=== PATIENT | female | born 1935 | race Caucasian/White ===

== ENCOUNTER → 2016-07-22 | Outpatient (CLI) | payer MEDICARE ==
--- NOTE | 2016-07-22 14:38 | REPMRS ---
Patient History The patient states she had a clinical breast exam in Patient is postmenopausal. No known family history of cancer. Taking estrogen for 22 years. Digital Woman Screen Mammo: July 22, 2016 - Exam #: [id number] Bilateral CC and MLO view(s) were taken. Technologist: Farzana Souza, Technologist Prior study comparison: May 08, 2015, digital woman screen mammo performed at [facility]. March 13, 2014, digital woman screen mammo performed at [facility]. March 23, 2013, digital woman screen mammo performed at [facility]. FINDINGS: There are scattered fibroglandular densities. There has been no change in the appearance of the mammogram from the prior studies. There is a mild amount of scattered fibroglandular density which is fairly symmetric. There is no interval development of dominant mass, architectural distortion, or clustered microcalcification suggestive of malignancy. ASSESSMENT: BI-RADS/ACR category 1 mammogram. Negative. Recommendation Routine screening mammogram in 1 year (for women over age 40). This mammogram was interpreted with the aid of an FDA-approved computer-aided dectection system. Electronically Signed By: Jelani Marion MD 07/22/16 [id number]
== END ==
LOC: M WHC 12:55
PROVIDERS: ATTEND Family Medicine
DX: Z12.31 Encounter for screening mammogram for malignant neoplasm of breast (principal)

== ENCOUNTER → 2018-06-15 | Outpatient (CLI) | payer MEDICARE ==
--- NOTE | 2018-06-15 17:14 | REPMRS ---
Patient History The patient states she had a clinical breast exam in 07/2017. Patient is postmenopausal. No known family history of cancer. Taking estrogen for 23 years 11 months. Digital Woman Screen Mammo: June 15, 2018 - Exam #: [id number] Bilateral CC and MLO view(s) were taken. Technologist: Liana Joe Technologist Prior study comparison: July 22, 2016, digital woman screen mammo performed at [facility]. May 08, 2015, digital woman screen mammo performed at [facility]. March 13, 2014, digital woman screen mammo performed at [facility]. FINDINGS: There are scattered fibroglandular densities. There has been no change in the appearance of the mammogram from the prior studies. There is a mild amount of scattered fibroglandular density which is fairly symmetric. There is no interval development of dominant mass, architectural distortion, or clustered microcalcification suggestive of malignancy. 3-D tomosynthesis shows no additional findings. Assessment: BI-RADS/ACR category 1 mammogram. Negative Mammogram. Recommendation Routine screening mammogram of both breasts in 1 year (for women over age 40). This patient's Lifetime Breast Cancer RIsk is estimated at 0.3 %. This mammogram was interpreted with the aid of an FDA-approved computer-aided dectection system. Electronically Signed By: Jelani Marion MD 06/15/18 [id number]
== END ==
LOC: M WHC 14:10
PROVIDERS: ATTEND Family Medicine
DX: Z12.31 Encounter for screening mammogram for malignant neoplasm of breast (principal); Z78.0 Asymptomatic menopausal state; Z92.23 Personal history of estrogen therapy

== ENCOUNTER → 2019-06-22 | Outpatient (CLI) | payer MEDICARE ==
--- NOTE | 2019-06-22 15:09 | REP ---
BILATERAL SCREENING DIGITAL MAMMOGRAM WITH 3D TOMOSYNTHESIS: There are no palpable abnormalities or other breast complaints. The the patient states she has not had a clinical breast examination over a year. Comparison is 03/13/2014. There are scattered areas of fibroglandular density. There is no dominant mass, micro calcific cluster or architectural distortion that would indicate malignancy. There are no additional findings on 3D tomosynthesiss. There is no change from the prior study. Impression: BIRADS/ACR category 1 mammogram. Negative. Recommendation: Routine annual screening mammography. This mammogram was interpreted with the aid of a FDA approved computer-aided detection system. A. Negative mammogram reports should not delay biopsy if a dominant or clinically suspicious mass is present. B. Not all breast cancers are identified by mammography or tomosynthesis. C. Adenosis and dense breasts may obscure an underlying neoplasm. Patient letter M1. Electronically Signed by Delio Diaz MD 06/22/2019 03:01 P
--- NOTE | 2019-06-29 10:21 | DEXA ---
AP SPINE L1 - L4 1.316 1.0 2.9 LT FEMUR TOTAL 1.121 0.9 3.2 LT NECK 1.139 0.7 3.1 RT FEMUR TOTAL 1.151 1.1 3.4 RT NECK 1.134 0.7 3.1 TOTAL BODY TOTAL OTHER COMMENTS: Normal bone densitometry of the spine and hips. The increased density of the spine does represent a significant change. The increased density of the left hip does not represent a significant change. The decreased density of the right hip does represent a significant change. The density of the spine has increased 8.8% since the initial exam on 08/28/1999. The spine density has increased 6.1% since the most recent exam on 03/19/2012. The density of the left hip has increased 4.6% since the initial exam on 08/28/1999. The density of the left hip has increased 1.6% since the most recent exam on 03/19/2012. The density of the right hip has increased 7.3% since initial exam on 08/28/1999. The density of the right hip has decreased 2.0% since the most recent exam on 03/19/2012. FOLLOW-UP: Recommendation for the next bone density exam: 5 years. SHAHRZAD
== END ==
LOC: M WHC 13:14
PROVIDERS: ATTEND Family Medicine
DX: Z12.31 Encounter for screening mammogram for malignant neoplasm of breast (principal); M85.80 Other specified disorders of bone density and structure, unspecified site

== ENCOUNTER → 2019-10-27 | Outpatient (REF) | payer MEDICARE ==
[2019-10-27 18:15] LABS: PERCENT SATURATION 10.2 % (13.2-45.0)
== END ==
LOC: M LAB REF 16:48
PROVIDERS: ATTEND Internal Medicine Nephrology
DX: D50.9 Iron deficiency anemia, unspecified (principal)

== ENCOUNTER → 2019-12-18 | Emergency (ER) | payer MEDICARE ==
[~2019-12-18] MED LIST: ISOVUE-370 76% 100ML VIAL As Ordered ONE
[2020-01-13 17:18] LABS: HEMATOCRIT 29.7 % (36.0-47.0); HEMOGLOBIN 9.6 g/dl (12.0-15.5); MEAN CORPUSCULAR HEMOGLOBIN 27.6 pg (27.0-33.0); MEAN CORPUSCULAR HGB CONC 32.3 g/dl (32.0-36.5); MEAN CORPUSCULAR VOLUME 85.3 fl (80.0-96.0); PLATELET COUNT, AUTOMATED 202 10^3/uL (150-450); RED BLOOD COUNT 3.48 10^6/uL (4.00-5.40); WHITE BLOOD COUNT 23.5 10^3/uL (4.0-10.0)
[2020-01-13 17:20] LABS: ATYPICAL LYMPH 2 % (0-5); EOSINOPHILS 1 % (0-3); LYMPHOCYTES 6 % (16-44); MONOCYTES 6 % (0-5); NEUTROPHILS 85 % (28-66)
[2020-01-13 17:21] LABS: PLATELET ESTIMATE NORMAL (NORMAL)
[2020-01-13 17:26] LABS: APPEARANCE, URINE CLEAR (CLEAR); BACTERIA, URINE AUTO NEGATIVE (NEGATIVE); BILIRUBIN, URINE AUTO NEGATIVE (NEGATIVE); BLOOD, URINE BLOOD NEGATIVE (NEGATIVE); COLOR, URINE STRAW (YELLOW); GLUCOSE, URINE (UA) AUTO NEGATIVE (NEGATIVE); KETONE, URINE AUTO NEGATIVE (NEGATIVE); LEUKOCYTE ESTERASE, URINE AUTO NEGATIVE (NEGATIVE); NITRITE, URINE AUTO NEGATIVE (NEGATIVE); PROTEIN, URINE AUTO NEGATIVE (NEGATIVE); RBC, URINE AUTO 2 /HPF (0-3); SPECIFIC GRAVITY URINE AUTO 1.003 (1.002-1.035); SQUAMOUS EPITHELIAL CELL UR AU 0 /HPF (0-6); UROBILINOGEN, URINE AUTO 0.2 mg/dL (0.0-2.0); WBC, URINE AUTO 2 /HPF (0-3)
[2020-01-24 09:53] LABS: GLUCOSE, FASTING 90 MG/DL (70-100)
[2020-01-24 09:54] LABS: ALBUMIN 3.2 GM/DL (3.2-5.2); ALT/SGPT 19 IU/L (0-32); BILIRUBIN,DIRECT 0.1 MG/DL (0.0-0.2); BILIRUBIN,TOTAL 0.3 MG/DL (0.2-1.0); BLOOD UREA NITROGEN 15 MG/DL (7-18); CALCIUM LEVEL 9.2 MG/DL (8.8-10.2); CARBON DIOXIDE LEVEL 27 mmol/L (20-29); CHLORIDE LEVEL 98 MEQ/L (98-107); CREATININE FOR GFR 1.04 MG/DL (0.55-1.30); GLOMERULAR FILTRATION RATE 53.6 (>32); POTASSIUM SERUM 4.6 MEQ/L (3.5-5.1); SODIUM LEVEL 134 MEQ/L (136-145); TOTAL PROTEIN 6.5 GM/DL (6.4-8.2)
[2020-01-24 09:55] LABS: TROPONIN I < 0.02 NG/ML (< 0.10)
--- NOTE | 2020-02-10 07:48 | ECGEPIP ---
SINUS RHYTHM WITH FREQUENT PACS NONSPECIFIC ST & T-WAVE CHANGES SEE SCANNED DOWNTIME REPORT MTDD
== END | disposition home or self-care (01) ==
LOC: M ED 18:30
DX: R10.821 Right upper quadrant rebound abdominal tenderness (principal); D72.829 Elevated white blood cell count, unspecified; S32.020A Wedge compression fracture of second lumbar vertebra, initial encounter for closed fracture; I10 Essential (primary) hypertension; I73.9 Peripheral vascular disease, unspecified; C83.30 Diffuse large B-cell lymphoma, unspecified site; E87.1 Hypo-osmolality and hyponatremia; Z79.52 Long term (current) use of systemic steroids; Z79.899 Other long term (current) drug therapy; M81.0 Age-related osteoporosis without current pathological fracture; J91.8 Pleural effusion in other conditions classified elsewhere; N13.2 Hydronephrosis with renal and ureteral calculous obstruction; K57.30 Diverticulosis of large intestine without perforation or abscess without bleeding; M51.26 Other intervertebral disc displacement, lumbar region; G32.81 Cerebellar ataxia in diseases classified elsewhere; Y92.9 Unspecified place or not applicable; Y93.9 Activity, unspecified; Y99.9 Unspecified external cause status
CPT/HCPCS: 70450; 71046; 72132; 80048; 80076; 81001; 84443; 84484; 85025; 87086; 93005; 99284; Q9967

== ENCOUNTER → 2023-02-05 | Outpatient (CLI) | payer MEDICARE | LOC: M WHC 10:21 | PROVIDERS: ATTEND Orthopaedic Surgery | DX: M50.30 Other cervical disc degeneration, unspecified cervical region (principal); M54.12 Radiculopathy, cervical region ==